=== PATIENT | female | born 1990 | race Caucasian/White ===

== ENCOUNTER 2022-02-07 09:06 | Outpatient (CLI) | payer OTHER, SELFPAY ==
--- NOTE | 2022-02-07 09:15 | MR_ITS ---
[address] [address] Phone:?[phone] Fax:?[phone] Referring Physician Information: Kris Deng [id number] [facility] [id number] Phone:?[phone] Fax:?[phone] Patient:?Katlin Walker D.O.B:?1990 Sex:?Female Phone:?[phone] [facility] MRN:?[id number] Exam Date:?02/07/2022 ? EXAM: MRI of the RIGHT LEG/ACHILLES TENDON CLINICAL HISTORY: Acute right leg/calf/Achilles pain attributed to injury while playing softball running bases. No history of previous surgery to the right leg/Achilles. COMPARISONS: None available. TECHNICAL: MRI sequences of the right leg/Achilles tendon: Axials: T1, PD FS Coronals: T1, STIR, T2 Sagittals: STIR, T2 Sedation: None Contrast: None FINDINGS: No fracture or destructive osseous lesion is seen. An approximately 3.8 x 1.4 cm focus of lobulated T2 hyperintensity within the proximal right tibia likely reflects either an enchondroma or osteonecrosis. No aggressive imaging feature is seen. There is an approximately 4 cm in length ill-defined grade 2 partial tear of the right-sided soleus/Achilles myotendinous junction best seen on axial series 3 images 23 through 30 with associated strain injury within the more proximal portion of the soleus muscle. No well-defined fluid intense retracted tear is seen. The distal portion of the Achilles tendon including the calcaneal insertion is not optimally evaluated by this large [id number]-[id number] study of the entire right leg. No mass lesion is seen. IMPRESSION: Approximately 4 cm in length ill-defined grade 2 partial tear of the right-sided soleus/Achilles myotendinous junction with associated strain injury within the more proximal portion of the right soleus muscle. No well-defined fluid intense retracted tear. It must be noted that the distal portion of the right Achilles tendon including the calcaneal insertion is not optimally evaluated by this large [id number]-[id number] study of the entire right leg. RCB Electronically signed on 02/07/2022 12:23:00 PM by Miquel Mcnulty M.D.
== END 2022-02-07 09:07 | disposition home or self-care (01) ==
LOC: MRI 09:07
PROVIDERS: PCP Family Medicine; Visit Provider Physician Assistant
DX: M79.661 Pain in right lower leg (principal); S86.011A Strain of right Achilles tendon, initial encounter
CPT/HCPCS: 73718

== ENCOUNTER 2022-11-11 16:44 | Outpatient (CLI) | payer OTHER, SELFPAY | END 2022-11-11 16:45 | disposition home or self-care (01) | PROVIDERS: PCP Family Medicine; Visit Provider Internal Medicine | DX: M79.2 Neuralgia and neuritis, unspecified (principal); R21 Rash and other nonspecific skin eruption | CPT/HCPCS: 80053; 86039 ==